=== PATIENT | female | born 1965 ===

== ENCOUNTER 2018-07-23 16:22 | Outpatient (REF) | payer BC, SELFPAY ==
--- NOTE | 2018-07-23 15:00 | PAPFT_PTH ---
PATIENT: Katie He LOC: [facility]#:[id number] AGE/SX: 52/F ROOM: RE07/23/[address]: Marlen Fletcher : 1965 BED: DIS: 07/23/2018 SPEC #: [id number] RECD: 07/24/18 13:02 STATUS: SELENE ESPINOZA #: [id number] ALESSANDRO: 07/23/18 15:[address]: Marlen Fletcher DEPT: [facility] Cytology RECD BY: Nelida Dia ENTERED: 07/24/18 13:02 SP TYPE: PAPFT OTHR DR: Amanda Quezada Tissues: 1 - CX/ENDOCX FOR PAP SMEARS Procedures: PAP THIN PREP/[facility] Screening HPV DNA PROBE Comments: [id number]
[2018-07-23 21:14] LABS: Cholesterol 190 mg/dL (50-200); HDL Cholesterol 43 mg/dL (40-60); LDL CHOLESTEROL 133 mg/dL (<100); Triglyceride 129 mg/dL (30-150)
== END 2018-07-23 16:42 ==
LOC: NCHCN 16:22
PROVIDERS: PCP Nurse Practitioner Family; Visit Provider Registered Nurse
DX: E66.9 Obesity, unspecified (principal); Z12.4 Encounter for screening for malignant neoplasm of cervix; Z11.51 Encounter for screening for human papillomavirus (HPV)
CPT/HCPCS: 80061; 83721; 88142; 87624

== ENCOUNTER 2020-06-04 20:31 | Outpatient (REF) | payer BC, SELFPAY ==
[2020-06-04 21:05] LABS: HCT 42.8 % (36.0-46.0); HGB 14.1 g/dL (11.2-15.7); MCH 29.6 pg (27.0-33.0); MCHC 32.9 % (32.0-36.0); MCV 89.9 fL (80-95); MPV 11.7 fL (8.0-11.0); Platelet Count 193 10^3/uL (130-400); RBC 4.76 10^6/uL (3.93-5.22); RDW 11.9 % (11.7-14.6); RDW-SD 38.8 fL; WBC 5.63 10^3/uL (4.4-10.8)
[2020-06-04 21:44] LABS: ALT 26 U/L (14-59); AST 22 U/L (15-37); Albumin 3.5 g/dL (3.4-5.0); Alkaline Phosphatase 69 U/L (46-116); Anion Gap 9.2 mmol/L (3-11); BUN 20 mg/dL (7-18); Bilirubin, Total 0.3 mg/dL (0.2-1.0); CO2 26.8 mmol/L (21.0-32.0); CREATININE 0.9 mg/dL (0.55-1.02); Calcium 8.9 mg/dL (8.5-10.1); Chloride 106 mmol/L (98-107); Glucose 95 mg/dL (74-106); Magnesium 2.2 mg/dL (1.8-2.4); Potassium 4.7 mmol/L (3.5-5.1); Sodium 142 mmol/L (136-145); TSH (W/Ref FT4) 2.09 uIU/mL (0.36-3.74); Total Protein 7.3 g/dL (6.4-8.2)
[2020-06-04 21:45] LABS: Hemoglobin A1C 5.4 % (<5.7)
[2020-06-05 13:08] LABS: Vitamin D 25 Total 25.2 ng/ml (30-100)
[2020-06-05 13:17] LABS: Iron 68 ug/dL (50-170)
[2020-06-05 13:24] LABS: Calculated LDL 98 mg/dL (<100); Cholesterol 170 mg/dL (<200); Ferritin 120 ng/mL (8-252); HDL Cholesterol 43 mg/dL (40-60); Triglyceride 146 mg/dL (<150); Vitamin B12 207 pg/mL (193-986)
[2020-06-08 11:55] LABS: Parathyroid Hormone,Intact 57 pg/mL (19-88)
[2020-06-10 10:00] LABS: Thiamine (Vitamin B1), WB 195 nmol/L (70-180)
== END 2020-06-04 20:32 | disposition home or self-care (01) ==
LOC: NCHCN 20:31
PROVIDERS: PCP Nurse Practitioner Family; Visit Provider Nurse Practitioner Family
DX: E66.9 Obesity, unspecified (principal); Z98.84 Bariatric surgery status; Z86.2 Personal history of diseases of the blood and blood-forming organs and certain disorders involving the immune mechanism
CPT/HCPCS: 80053; 80061; 82306; 85027; 82607; 82728; 83036; 83540; 83735; 83970; 84425; 84443

== ENCOUNTER 2020-08-24 12:32 | Outpatient (REF) | payer BC, SELFPAY ==
[2020-08-24 14:14] LABS: Vitamin B12 1000 pg/mL (193-986)
== END 2020-08-24 12:33 | disposition home or self-care (01) ==
LOC: NCHCN 12:32
PROVIDERS: PCP Nurse Practitioner Family; Visit Provider Nurse Practitioner Family
DX: E55.9 Vitamin D deficiency, unspecified (principal); E53.8 Deficiency of other specified B group vitamins
CPT/HCPCS: 82306; 82607

== ENCOUNTER 2021-02-22 12:17 | Outpatient (REF) | payer BC, SELFPAY ==
[2021-02-22 22:41] LABS: Vitamin D 25 Total 35.7 ng/mL (30-100)
== END 2021-02-22 12:18 | disposition home or self-care (01) ==
LOC: NCHCN 12:17
PROVIDERS: PCP Nurse Practitioner Family; Visit Provider Nurse Practitioner Family
DX: E55.9 Vitamin D deficiency, unspecified (principal)
CPT/HCPCS: 82306

== ENCOUNTER 2022-02-28 17:54 | Outpatient (REF) | payer BC, SELFPAY ==
[2022-02-28 21:48] LABS: Vitamin D 25 Total 50.7 ng/mL (30-100)
== END 2022-02-28 17:55 | disposition home or self-care (01) ==
LOC: NCHCN 17:54
PROVIDERS: PCP Nurse Practitioner Family; Visit Provider Nurse Practitioner Family
DX: E55.9 Vitamin D deficiency, unspecified (principal)
CPT/HCPCS: 82306

== ENCOUNTER 2023-01-27 14:01 | Outpatient (REF) | payer OTHER, SELFPAY ==
[2023-01-27 14:37] LABS: Abs Immature Grans 0.01 10^3/uL (0.0-0.06); Absolute Basophil Count 0.02 10^3/uL (0.0-0.2); Absolute Eosinophil Count 0.08 10^3/uL (0.0-0.7); Absolute Lymphocyte Count 2.14 10^3/uL (1.2-3.4); Absolute Monocyte Count 0.47 10^3/uL (0.1-0.8); Basophils % 0.3; Eosinophils % 1.4; HCT 41.7 % (36.0-46.0); HGB 13.9 g/dL (11.2-15.7); Immature Grans % 0.2; Lymphocytes % 37.4; MCH 30.3 pg (27.0-33.0); MCHC 33.3 % (32.0-36.0); MCV 91 fL (80-95); MPV 11.6 fL (8.0-11.0); Monocytes % 8.2; Neutrophils % 52.5; Platelet Count 191 10^3/uL (130-400); RBC 4.59 10^6/uL (3.93-5.22); RDW 12.2 % (11.7-14.6); RDW-SD 40.5 fL; WBC 5.72 10^3/uL (4.4-10.8)
[2023-01-27 14:55] LABS: Calculated LDL 93 mg/dL (<100); Cholesterol 160 mg/dL (<200); HDL Cholesterol 51 mg/dL (40-60); Triglyceride 82 mg/dL (<150)
== END 2023-01-27 14:02 | disposition home or self-care (01) ==
LOC: NCHCN 14:01
PROVIDERS: PCP Family Medicine; Visit Provider Family Medicine
DX: D50.9 Iron deficiency anemia, unspecified (principal); E66.8 Other obesity; Z00.00 Encounter for general adult medical examination without abnormal findings; Z13.220 Encounter for screening for lipoid disorders
CPT/HCPCS: 80061; 85025

== ENCOUNTER 2023-09-11 18:09 | Outpatient (REF) | payer BC, SELFPAY ==
--- NOTE | 2023-09-11 17:00 | PAPFT_PTH ---
PATIENT: Katie He LOC: [facility]#:[id number] AGE/SX: 57/F ROOM: RE09/11/[address]: Brooklyn Landeros : 1965 BED: DIS: 09/11/2023 SPEC #: [id number] RECD: 09/12/23 12:47 STATUS: SELENE RECameron #: [id number] ALESSANDRO: 09/11/23 17:[address]: Brooklyn Landeros DEPT: [facility] Cytology RECD BY: Nelida Dia Tissues: 1 - CX/ENDOCX FOR PAP SMEARS Procedures: PAP THIN PREP/[facility] Screening HPV DNA PROBE Comments: [id number]
== END 2023-09-11 18:10 | disposition home or self-care (01) ==
LOC: NCHCN 18:09
PROVIDERS: PCP Family Medicine; Visit Provider Family Medicine
DX: Z12.4 Encounter for screening for malignant neoplasm of cervix (principal)
CPT/HCPCS: 88142; 87624